=== PATIENT | male | born 1970 | race Caucasian/White ===

== ENCOUNTER 2023-04-16 11:09 | Emergency (ER) | payer OTHER ==
[2023-04-16 11:47] LABS: #Basophils 0.1 thou/uL (0.0-0.2); #Monocytes 0.3 thou/uL (0.11-0.59); #Neutrophils 4.7 thou/uL (1.40-6.50); %Basophils 0.9 % (0.0-1.0); %Eosinophils 0.5 % (0.0-10.0); %Lymphocytes 19.8 % (21.0-51.0); %Monocytes 4.9 % (0.0-10.0); %Neutrophils 73.7 % (42.0-75.0); Hematocrit 43.1 % (42.0-52.0); Hemoglobin 15.4 g/dL (14.0-18.0); Mean Corpuscular HGB CONC 35.7 g/dL (32.0-36.0); Mean Corpuscular Hemoglobin 32.2 pg (27.0-31.0); Mean Platelet Volume 11.5 fL (7.4-10.4); Platelet Count 206 10x3/uL (130-400); RBC Distribution Width 11.8 % (11.5-14.5); Red Blood Cell (RBC) Count 4.79 mill/uL (4.70-6.10); White Blood Cell (WBC) Count 6.3 10x3/uL (4.8-10.8)
[2023-04-16 12:02] LABS: Bacteria/HPF None Seen HPF (None Seen); Bilirubin Negative (Negative); Blood, Urine Negative (Negative); CAUTI Indications for Culture Dysuria,urgency,freq; Clarity Clear (Clear); Glucose, Urine (Dipstick) Normal (Negative); Ketone, Urine Negative (Negative); Leukocyte Negative Leu/uL (Negative); Nitrite Negative (Negative); Protein, Urine (Dipstick) Negative (Neg-Trace); RBC/HPF None Seen HPF (0-3); Specific Gravity, Urine 1.002 (1.002-1.036); Squamous Epithelial None Seen HPF (0-3); Urobilinogen Normal mg/dL (Less than 2); WBC/HPF 0-3 HPF (0-3); pH, Urine 6.5 (5.0-9.0)
[2023-04-16 12:04] LABS: Urine Culture Reflex No No
[2023-04-16 12:10] LABS: ALT (SGPT) 32 U/L (8-55); AST (SGOT) 19 U/L (5-34); Albumin 4.4 g/dL (3.5-5.0); Alkaline Phosphatase 55 U/L (40-110); Anion Gap 14 mmol/L (10-20); BUN (Urea Nitrogen) 15 mg/dL (8.4-25.7); Bilirubin, Total 0.8 mg/dL (0.2-1.2); Calc. Creatinine Clearance 0 mL/min (70-130); Calcium 9.4 mg/dL (7.8-10.44); Carbon Dioxide 22 mmol/L (22-29); Chloride 108 mmol/L (98-107); Estimated GFR 76; Globulin 3.1 g/dL (2.4-3.5); Glucose 111 mg/dL (70-105); Potassium 3.9 mmol/L (3.5-5.1); Protein, Total 7.5 g/dL (6.0-8.3); Sodium 140 mmol/L (136-145)
[2023-04-16 12:14] LABS: Troponin I Less than 0.010 ng/mL (< 0.028)
== END 2023-04-16 13:18 | disposition home or self-care (01) ==
LOC: ERS 11:09
DX: R07.89 Other chest pain (principal); R00.2 Palpitations
CPT/HCPCS: 71045; 80053; 81001; 83880; 84443; 84484; 85025; 93005

== ENCOUNTER 2023-04-18 13:07 | Outpatient (CLI) | payer OTHER ==
[~2023-04-18 13:07] MED LIST: Iopamidol 370 76% 100 ML VIAL ONE
== END 2023-04-18 13:08 | disposition home or self-care (01) ==
LOC: SJX 13:07
PROVIDERS: ATTEND Family Medicine
DX: N28.89 Other specified disorders of kidney and ureter (principal)
CPT/HCPCS: 74178

== ENCOUNTER 2023-05-08 08:50 | Emergency (ER) | payer OTHER ==
[2023-05-08] MEDS ORDERED: Acetaminophen 325 MG TAB ONE (09:12)
== END 2023-05-08 11:16 | disposition home or self-care (01) ==
LOC: ERS 08:50
DX: M79.604 Pain in right leg (principal); R22.41 Localized swelling, mass and lump, right lower limb; I10 Essential (primary) hypertension; E78.5 Hyperlipidemia, unspecified; Z79.82 Long term (current) use of aspirin; Z79.899 Other long term (current) drug therapy

== ENCOUNTER 2023-05-09 06:22 | Day surgery (SDC) | payer OTHER ==
[2023-05-06 14:19] VITALS: BMI 28.7
[2023-05-09] MEDS ORDERED: fentaNYL 50 mcg/mL 1 mL Vial ONE (06:30)
[2023-05-09] MEDS ORDERED: Nitroglycerin 50 MG/250 ML BOT 0 ML ONE (06:31)
[2023-05-09] MEDS ORDERED: Midazolam HCl 2 mg/2 ml Vial ONE (06:31)
[2023-05-09] MEDS ORDERED: Heparin 10,000 UNITS/ 10 ML VIAL ONE (06:31)
[2023-05-09] MEDS ORDERED: Lidocaine 1% (PF) 30 ML VIAL ONE (06:31)
[2023-05-09] MEDS ORDERED: Iopamidol 370 76% 100 ML VIAL ONE (09:49)
== END 2023-05-09 12:43 | disposition home or self-care (01) ==
LOC: SDC 06:22
PROVIDERS: ATTEND Internal Medicine Cardiovascular Disease
PROC: B200YZZ Plain Radiography of Single Coronary Artery using Other Contrast (ICD-10-PCS; principal; 2023-05-09)
PROC: 4A023N7 Measurement of Cardiac Sampling and Pressure, Left Heart, Percutaneous Approach (ICD-10-PCS; principal; 2023-05-09)
DX: R07.89 Other chest pain (principal); I10 Essential (primary) hypertension; I77.89 Other specified disorders of arteries and arterioles; Z79.82 Long term (current) use of aspirin; Z79.899 Other long term (current) drug therapy
CPT/HCPCS: 93458; 99152; 99153; C1769; C1894; J1644; J2001; J2250; J3010; Q9967